=== PATIENT | male | born 1945 | race Caucasian/White ===

== ENCOUNTER 2019-01-18 08:43 | Emergency (ER) | payer MEDICARE ==
--- NOTE | 2019-01-18 09:05 | ED Physician Documentation ---
PD HPI MALE - Stated complaint Stated Complaint: MALE - Chief complaint Chief Complaint: General - History obtained from History obtained from: Patient - History of Present Illness Timing - onset: How many days ago (couple) Timing - duration: Days (couple) Timing - details: Gradual onset, Still present Associated symptoms: Testiclar pain (left sided only, not affected by scrotal support nor position. No flank pain.). No: Dysuria, Urinary frequency, Unable to urinate, Genital sore / lesion, Abdominal pain Similar symptoms before: Has not had sx before Recently seen: Not recently seen Review of Systems Constitutional: denies: Fever, Chills, Myalgias Cardiac: denies: Chest pain / pressure, Palpitations Respiratory: denies: Dyspnea, Cough GI: denies: Abdominal Pain, Nausea, Vomiting, Constipation, Diarrhea : denies: Dysuria, Frequency, Discharge Skin: denies: Rash, Lesions Musculoskeletal: denies: Neck pain, Back pain PD PAST MEDICAL HISTORY - Past Medical History Cardiovascular: None Respiratory: None Neuro: None Endocrine/Autoimmune: None : None - Present Medications Home Medications: Ambulatory Orders Medication Instructions Recorded Confirmed Oxycodone HCl/Acetaminophen 1 - 2 each PO Q6H PRN #25 tablet 01/18/19 [Percocet 5-325 mg Tablet] RX: Naproxen 500 mg PO BID #20 tablet 01/18/19 dexAMETHasone [Decadron] 4 mg PO DAILY #5 tablet 01/18/19 - Allergies Allergies/Adverse Reactions: Allergies Allergy/AdvReac Type Severity Reaction Status Date / Time erythromycin base Allergy Cramps Verified 01/18/19 08:49 PD ED PE NORMAL - Vitals Vital signs reviewed: Yes - General General: Alert and oriented X 3, Well developed/nourished, Other (appears uncomfortable) - Abdomen Abdomen: Soft, Non tender - Male Male : Other (normal genitalia without testicular tenderness nor swelling. No hernia felt. Has sensation on penis, perineum and perirectal. Normal cremaster reflex. ) - Rectal Rectal: Deferred - Back Back: No CVA TTP Results - Vitals Vitals: Vital Signs - 24 hr 01/18/19 01/18/19 01/18/19 08:47 10:48 12:00 Temperature 37.1 C Heart Rate 95 81 82 Respiratory 92 H 16 18 Rate Blood Pressure 179/115 H 182/109 H 165/86 H O2 Saturation 96 98 96 Oxygen O2 Source Room air - Rads (name of study) testicle U/S Radiology: Prelim report reviewed, See rad report (normal) PD MEDICAL DECISION MAKING - ED course Complexity details: considered differential (testicle seems normal but can get U/S to ensure. Otherwise is sounding like nerve irritation, presume then S2 or S3 to go there. He has normal sensation and cremaster and rectal tone, so does not seem caudal or significant nerve compression. No flank pain, so doubt kidney stone or up higher. Is emptying bladder okay. ), d/w patient Departure - Departure Disposition: 01 Home, Self Care Clinical Impression: Pelvic pain, Testicular pain, left Condition: Stable Record reviewed to determine appropriate education?: Yes Instructions: ED Pelvic Pain [facility] Follow-Up: Efren Hurst MD [Primary Care Provider] - Prescriptions: dexAMETHasone [Decadron] 4 mg PO DAILY #5 tablet RX: Naproxen 500 mg PO BID #20 tablet Oxycodone HCl/Acetaminophen [Percocet 5-325 mg Tablet] 1 - 2 each PO Q6H PRN #25 tablet PRN Reason: pain Comments: Your ultrasound appears normal as does the exam of your genitalia. I think your pain is coming from a nerve irritation from the sacrum/pelvis ("pinched nerve"). We will treat this with anti-inflammatories and pain medicine. Heat and gentle range of motion as comfortable. Recheck if not improved over the next several days and return if not adequately relieved or improved with the prescribed medications. Discharge Date/Time: 01/18/19 12:14
[2019-01-18] MEDS ORDERED: CHERRY SYRUP 10 ML UDC PO ONE (09:16)
[2019-01-18] MEDS ORDERED: DEXAMETHASONE 10 MG/ML VIAL PO STA (09:16)
[2019-01-18] MEDS ORDERED: METHOCARBAMOL 500 MG TABLET PO STA (09:16)
[2019-01-18] MEDS ORDERED: KETOROLAC 30 MG/ML VIAL IM STA (09:16)
[2019-01-18 12:14] VITALS: BP 165/86
--- NOTE | 2019-01-18 12:48 | Ultrasound Report ---
Reason: left testicle pain after lifting yesterday Procedure Date: 01/18/2019 Accession Number: [id number] / [id number] Procedure: US - Testicle w/Doppler CPT Code: FULL RESULT: EXAM: SCROTAL ULTRASOUND EXAM DATE: 01/18/2019 10:34 AM. CLINICAL HISTORY: Left testicle pain after lifting yesterday. COMPARISON: 01/18/2019 10:39 AM. 01/18/2019 10:43 AM. TECHNIQUE: Real-time scanning was performed with static images obtained. Color-flow images were utilized. FINDINGS: Right: Testis: 3.7 x 2.3 x 3.3 cm. Normal size and echotexture. No mass, calcification, or abnormal blood flow. Epididymis: 1.2 x 0.6 x 0.7 cm. Normal size and echotexture. No mass or abnormal blood flow. Hydrocele: Small hydrocele. Varicocele: None. Left: Testis: 4.2 x 2.5 x 2.7 cm. Normal size and echotexture. No mass, calcification, or abnormal blood flow. Epididymis: cm. Normal size and echotexture. No mass or abnormal blood flow. Hydrocele: Moderate hydrocele. Varicocele: None. No evidence of inguinal canal hernia detected. IMPRESSION: Bilateral hydroceles. No testicular masses or evidence of torsion identified. [facility]
== END 2019-01-18 12:14 | disposition home or self-care (01) ==
LOC: ED 08:43
DX: N50.812 Left testicular pain (principal); R10.2 Pelvic and perineal pain
CPT/HCPCS: 76870; 93975; 96372; 99283; 99284; A9270

== ENCOUNTER 2020-06-15 08:09 | Outpatient (CLI) | payer MEDICARE ==
[2020-06-15 08:50] LABS: BASOPHILS % (AUTO) 0.4 %; EOSINOPHILS # (AUTO) 0.1 10^3/uL (0.0-0.7); EOSINOPHILS % (AUTO) 1.4 %; HGB - HEMOGLOBIN 14.7 g/dL (14.0-18.0); LYMPHOCYTES # (AUTO) 2.8 10^3/uL (1.5-3.5); LYMPHOCYTES % (AUTO) 35.8 %; MEAN CORPUSCULAR HEMOGLOBIN 32.7 pg (27.0-31.0); MEAN CORPUSCULAR HGB CONC 34.1 g/dL (32.0-36.0); MEAN PLATELET VOLUME 11.2 fL (7.4-11.4); MONOCYTES # (AUTO) 0.5 10^3/uL (0.0-1.0); MONOCYTES % (AUTO) 6.6 %; NEUTROPHILS # (AUTO) 4.3 10^3/uL (1.5-6.6); NEUTROPHILS % (AUTO) 55.2 %; PLT - PLATELET COUNT 163 10^3/uL (130-450); RED BLOOD COUNT 4.49 10^6/uL (4.70-6.10); RED CELL DISTRIBUTION WIDTH 13.3 % (12.0-15.0); WHITE BLOOD COUNT 7.9 x10^3/uL (4.8-10.8)
[2020-06-15 09:00] LABS: ALBUMIN 4.6 g/dL (3.2-5.5); ALBUMIN/GLOBULIN RATIO 1.3 (1.0-2.2); BILIRUBIN,TOTAL 1.3 mg/dL (0.2-1.0); CALCIUM 8.6 mg/dL (8.5-10.3); TOTAL PROTEIN 8.1 g/dL (6.7-8.2)
[2020-06-15 10:11] LABS: THYROID STIMULATING HORMONE 2.81 uIU/mL (0.34-5.60)
[2020-06-15 10:13] LABS: FREE T3 2.88 pg/mL (2.5-3.9)
--- NOTE | 2020-06-15 15:26 | XRAY Report ---
PROCEDURE: Chest 2 View X-Ray INDICATIONS: PND,HYPERTENSION BENIGN ESSENTIAL,LAB DRAW TECHNIQUE: 2 view(s) of the chest. COMPARISON: None. FINDINGS: Surgical changes and devices: None. Lungs and pleura: No pleural effusions or pneumothorax. Lungs are clear. Mediastinum: Mediastinal contours are normal. Heart size is normal. Bones and chest wall: No suspicious bony abnormalities. Soft tissues appear unremarkable. IMPRESSION: No acute pulmonary process. Reviewed by: Vero Rodas MD on 06/15/2020 3:25 PM [facility] Approved by: Vero Rodas MD on 06/15/2020 3:25 PM [facility] Station ID: [id number]
== END 2020-06-15 08:10 | disposition home or self-care (01) ==
LOC: LAB 08:09 → DI 08:10
PROVIDERS: ATTEND Family Medicine
DX: R06.00 Dyspnea, unspecified (principal); I10 Essential (primary) hypertension
CPT/HCPCS: 36415; 80053; 83880; 84443; 84481; 85025

== ENCOUNTER 2020-06-26 11:23 | Outpatient (CLI) | payer MEDICARE ==
[2020-06-26 11:57] LABS: BASOPHILS % (AUTO) 0.2 %; EOSINOPHILS # (AUTO) 0.1 10^3/uL (0.0-0.7); EOSINOPHILS % (AUTO) 1.4 %; HGB - HEMOGLOBIN 14.4 g/dL (14.0-18.0); LYMPHOCYTES # (AUTO) 2.2 10^3/uL (1.5-3.5); LYMPHOCYTES % (AUTO) 32.7 %; MEAN CORPUSCULAR HGB CONC 34.3 g/dL (32.0-36.0); MEAN CORPUSCULAR VOLUME 96.3 fL (80.0-94.0); MEAN PLATELET VOLUME 11.3 fL (7.4-11.4); MONOCYTES # (AUTO) 0.5 10^3/uL (0.0-1.0); MONOCYTES % (AUTO) 7.1 %; NEUTROPHILS # (AUTO) 3.9 10^3/uL (1.5-6.6); NEUTROPHILS % (AUTO) 58.3 %; PLT - PLATELET COUNT 157 10^3/uL (130-450); RED BLOOD COUNT 4.36 10^6/uL (4.70-6.10); RED CELL DISTRIBUTION WIDTH 13.1 % (12.0-15.0); WHITE BLOOD COUNT 6.6 x10^3/uL (4.8-10.8)
[2020-06-26 12:14] LABS: ALBUMIN 4.6 g/dL (3.2-5.5); ALBUMIN/GLOBULIN RATIO 1.4 (1.0-2.2); BILIRUBIN,DIRECT 0.2 mg/dL (0.1-0.5); BILIRUBIN,TOTAL 0.9 mg/dL (0.2-1.0); CALCIUM 9.3 mg/dL (8.5-10.3); CREATININE 1.1 mg/dL (0.6-1.2); POTASSIUM 4.3 mmol/L (3.5-5.0); TOTAL PROTEIN 7.8 g/dL (6.7-8.2)
[2020-06-26 12:40] LABS: THYROID STIMULATING HORMONE 2.68 uIU/mL (0.34-5.60)
[2020-06-26 12:42] LABS: FREE T3 2.95 pg/mL (2.5-3.9)
[2020-06-26 12:43] LABS: FREE T4 (FREE THYROXINE) 0.78 ng/dL (0.58-1.64)
[2020-06-27 12:58] LABS: HEPATITIS B SURFACE ANTIGEN NON-REACTIVE (NON-REACTIVE); HEPATITIS C ANTIBODY NON-REACTIVE (NON-REACTIVE)
== END 2020-06-26 11:24 | disposition home or self-care (01) ==
LOC: LAB 11:23
PROVIDERS: ATTEND Family Medicine
DX: R06.00 Dyspnea, unspecified (principal); I10 Essential (primary) hypertension; R17 Unspecified jaundice; R74.01 Elevation of levels of liver transaminase levels
CPT/HCPCS: 36415; 80053; 82248; 82977; 83880; 84439; 84443; 84481; 85025; 86317; 86704; 86803; 87340

== ENCOUNTER 2021-08-08 07:33 | Outpatient (CLI) | payer MEDICARE ==
[2021-08-08 08:03] LABS: ALBUMIN 4.7 g/dL (3.2-5.5); ALBUMIN/GLOBULIN RATIO 1.4 (1.0-2.2); ALKALINE PHOSPHATASE 107 IU/L (42-121); ALT ALANINE AMINOTRANSFERASE 78 IU/L (10-60); AST ASPARTATE AMINOTRANSFERASE 84 IU/L (10-42); BILIRUBIN,TOTAL 1.1 mg/dL (0.2-1.0); BUN - BLOOD UREA NITROGEN 10 mg/dL (6-20); CALCIUM 8.8 mg/dL (8.5-10.3); CARBON DIOXIDE - CO2 24 mmol/L (21-32); CHLORIDE 99 mmol/L (101-111); CHOL/HDL RATIO 4.6 (<5.0); CHOLESTEROL 237 mg/dL; CREATININE 1.1 mg/dL (0.6-1.2); GFR - MDRD 65 (>89); GLUCOSE 149 mg/dL (70-100); HDL CHOLESTEROL 51 mg/dL; LDL CHOLESTEROL,CALCULATED 124 mg/dL; LDL/HDL RATIO 2.4 (<3.6); POTASSIUM 4.4 mmol/L (3.5-5.0); SODIUM 133 mmol/L (135-145); TRIGLYCERIDES 308 mg/dL; VLDL CHOLESTEROL 62 mg/dL
== END 2021-08-08 07:34 | disposition home or self-care (01) ==
LOC: LAB 07:33
PROVIDERS: ATTEND Urology
DX: I10 Essential (primary) hypertension (principal); Z13.6 Encounter for screening for cardiovascular disorders; R97.20 Elevated prostate specific antigen [PSA]
CPT/HCPCS: 36415; 80053; 80061; G0103; 83721; 84153

== ENCOUNTER 2022-01-14 08:47 | Outpatient (CLI) | payer MEDICARE ==
--- NOTE | 2022-01-14 11:41 | CT Report ---
PROCEDURE: CT sinus without contrast INDICATIONS: CHRONIC PANSINUSITIS TECHNIQUE: Noncontrast 3.0 mm axial images acquired from the frontal sinuses to the mid-sella, with coronal and sagittal reformats. For radiation dose reduction, the following was used: automated exposure control , adjustment of mA and/or kV according to patient size. COMPARISON: None. FINDINGS: Image quality: Excellent. Maxillary Sinuses: Bilateral maxillary sinus retention cysts measure up to 3 cm in the right. Ostiome atal units are clear. Ethmoid Air Cells: Bilateral mucosal thickening involving the anterior and middle air cells. No remod eling. Sphenoid Sinuses: No bony remodeling or destruction. Sinuses are clear. Frontal Sinuses: Bilateral mucosal thickening along the floor of the frontal sinuses results in obstr uction of the bilateral frontal recesses. Ostiomeatal Complexes: Ostiomeatal complexes are patent. No Isadora cells. Miscellaneous: Visualized intra-orbital contents are normal. There is pneumatization of the left mid dle turbinate. Slight bowing of the osseous septum to the right. IMPRESSION: 1. Maxillary, ethmoid and frontal mucosal sinus disease results in obstruction of the frontal egress tracks 2. Incidental left randy bullosa Reviewed by: Kirk Huber MD on 01/14/2022 10:40 AM [facility] Approved by: Kirk Huber MD on 01/14/2022 10:40 AM [facility] Station ID: [id number]
== END 2022-01-14 08:48 | disposition home or self-care (01) ==
LOC: DI 08:47
PROVIDERS: ATTEND Otolaryngology
DX: J32.4 Chronic pansinusitis (principal)

== ENCOUNTER 2022-01-25 10:16 | Emergency (ER) | payer MEDICARE ==
--- OUTSIDE RECORDS SUMMARY | 2022-01-25 10:33 | EXTERNAL MEDICAL SUMMARY RPT | Continuity of Care Document ---
:1945 Author Organization [facility] Address [address] [place] [address] Phone Allergies No information. Encounters No information. Functional Status No information. Immunizations No information. Medications No information. Problems No information. Procedures No information. Results/Labs test date author facility value unit interpret ation Result panel 1 (unknown) (no (unknown) (unknown) (no value) (units (unk nown) date) unknown) (unknown) (no (unknown) (unknown) [place], [place] (units ( unknown) date) [id number] unknown) (unknown) (no (unknown) (unknown) [facility] (units (unkno wn) date) unknown) (unknown) (no (unknown) (unknown) [facility] ([facility] date[facility] unknown) (unknown) (no (unknown) (unknown) Hypertension (units (u nknown) date) unknown) (unknown) (no (unknown) (unknown) Internal (units (unkno wn) date) Medicine Office unknown) Visit (unknown) (no (unknown) (unknown) Vomiting (units (unkno wn) date) unknown) (unknown) (no (unknown) (unknown) (no value) (units (unk nown) date) unknown) (unknown) (no (unknown) (unknown) [id number] (units (unkno wn) date) unknown) (unknown) (no (unknown) (unknown) 12/17/21 (units (unkno wn) date) unknown) (unknown) (no (unknown) (unknown) Age/Sex: 76 / M (units (unknown) date) Date of Service: unknown) (unknown) (no (unknown) (unknown) Allergies (units (unkn own) date) unknown) (unknown) (no (unknown) (unknown) Attending Dr: (units ( unknown) date) Jian Lopez MD unknown) (unknown) (no (unknown) (unknown) : 1945 (units (unknown) date) Acct:[id number] unknown) (unknown) (no (unknown) (unknown) Dept at (units (unkno wn) date) . unknown) (unknown) (no (unknown) (unknown) Documented By: (units (unknown) date) Jian Lopez MD unknown) 12/17/21 1400 (unknown) (no (unknown) (unknown) Elevated PSA (units (u nknown) date) unknown) (unknown) (no (unknown) (unknown) Erectile (units (unkno wn) date) dysfunction unknown) (unknown) (no (unknown) (unknown) Essential (units (unkn own) date) hypertension unknown) (unknown) (no (unknown) (unknown) Family History (units (unknown) date) (Reviewed unknown) 07/17/21 @ 11:09 by Jian Lopez MD) (unknown) (no (unknown) (unknown) Father (units (unknown) date) No problems unknown) noted. (unknown) (no (unknown) (unknown) Gilbert syndrome (units (unknown) date) unknown) (unknown) (no (unknown) (unknown) Hearing loss (units (u nknown) date) unknown) (unknown) (no (unknown) (unknown) Intake (units (unkno wn) date) unknown) (unknown) (no (unknown) (unknown) Intake Note: (units (u nknown) date) unknown) (unknown) (no (unknown) (unknown) Intake performed (units (unknown) date) by: Starla San unknown) D (unknown) (no (unknown) (unknown) Intake- Clincial (units (unknown) date) Staff unknown) (unknown) (no (unknown) (unknown) LS: 07/2021. (units (un known) date) unknown) (unknown) (no (unknown) (unknown) Loc: [facility] (units (unkno wn) date) unknown) (unknown) (no (unknown) (unknown) Medical History (units (unknown) date) (Updated 08/17/21 unknown) @ 11:29 by Jian Lopez MD) (unknown) (no (unknown) (unknown) Medications (units (un known) date) unknown) (unknown) (no (unknown) (unknown) Memory Issues (units ( unknown) date) unknown) (unknown) (no (unknown) (unknown) Mother (units (unknown) date) Diabetes mellitus unknown) (unknown) (no (unknown) (unknown) No pertinent (units (u nknown) date) past surgical unknown) history (unknown) (no (unknown) (unknown) Not feeling (units (un known) date) well. unknown) (unknown) (no (unknown) (unknown) Ongoing for (units (un known) date) unknown) (unknown) (no (unknown) (unknown) PFSH (units (unkno wn) date) unknown) (unknown) (no (unknown) (unknown) Patient: (units (unkno wn) date) Jono Salinas unknown) MR#: [id number] (unknown) (no (unknown) (unknown) Prostate cancer (units (unknown) date) unknown) (unknown) (no (unknown) (unknown) Reason For Visit (units (unknown) date) unknown) (unknown) (no (unknown) (unknown) Review/Discuss. (units (unknown) date) unknown) (unknown) (no (unknown) (unknown) Signed By: (units (unk nown) date) unknown) (unknown) (no (unknown) (unknown) Smoking Status: (units (unknown) date) Former smoker unknown) (Smokes Marijuana daily) (unknown) (no (unknown) (unknown) Surgical History (units (unknown) date) (Reviewed unknown) 07/17/21 @ 11:09 by Jian Lopez MD) (unknown) (no (unknown) (unknown) This note may (units ( unknown) date) have been all or unknown) partially generated using voice recognition (unknown) (no (unknown) (unknown) Tobacco + (units (unkn own) date) Substance Use unknown) (unknown) (no (unknown) (unknown) Tobacco Status (units (unknown) date) unknown) (unknown) (no (unknown) (unknown) Transaminitis (units ( unknown) date) unknown) (unknown) (no (unknown) (unknown) Visit Reasons: (units (unknown) date) Memory issues, unknown) not feeling well (unknown) (no (unknown) (unknown) amlodipine 5 mg (units (unknown) date) tablet 5 mg PO unknown) DAILY 07/17/21 [History Confirmed 12/17/21] (unknown) (no (unknown) (unknown) azithromycin (units (u nknown) date) Adverse Reaction unknown) (Severe, Verified 12/17/21 14:01) (unknown) (no (unknown) (unknown) have occurred. (units (unknown) date) If there are any unknown) questions, please contact the Medical Records (unknown) (no (unknown) (unknown) may occur. (units (unk nown) date) Occasional unknown) wrong-word or 'sound-alike' substitutions may have (unknown) (no (unknown) (unknown) occurred due to (units (unknown) date) the inherent unknown) limitations of voice recognition software. Please (unknown) (no (unknown) (unknown) read the note (units ( unknown) date) carefully and unknown) recognize, using context, where these substitutions (unknown) (no (unknown) (unknown) software. (units (unkn own) date) Although every unknown) effort is made to edit content, service center coordinator errors (unknown) (no (unknown) (unknown) tamsulosin 0.4 (units (unknown) date) mg capsule 0.4 mg unknown) PO DAILY 08/17/21 [History Confirmed 12/17/21] Result panel 2 (unknown) (no (unknown) (unknown) (no value) (units (unk nown) date) unknown) (unknown) (no (unknown) (unknown) (no value) (units (unk nown) date) unknown) (unknown) (no (unknown) (unknown) 12/17/21 (units (unkno wn) date) unknown) (unknown) (no (unknown) (unknown) 14:06 (units (unkno wn) date) unknown) (unknown) (no (unknown) (unknown) [place], [place] (units ( unknown) date) [id number] unknown) (unknown) (no (unknown) (unknown) Draft (units (unkno wn) date) unknown) (unknown) (no (unknown) (unknown) [facility] unknown) (unknown) (no (unknown) (unknown) Hypertension (units (u nknown) date) unknown) (unknown) (no (unknown) (unknown) Internal (units (unkno wn) date) Medicine Office unknown) Visit (unknown) (no (unknown) (unknown) Vomiting (units (unkno wn) date) unknown) (unknown) (no (unknown) (unknown) (no value) (units (unk nown) date) unknown) (unknown) (no (unknown) (unknown) [id number] (units (unkno wn) date) unknown) (unknown) (no (unknown) (unknown) 12/17/21 (units (unkno wn) date) unknown) (unknown) (no (unknown) (unknown) Accompanied by: (units (unknown) date) Spouse unknown) (unknown) (no (unknown) (unknown) Age/Sex: 76 / M (units (unknown) date) Date of Service: unknown) (unknown) (no (unknown) (unknown) Allergies (units (unkn own) date) unknown) (unknown) (no (unknown) (unknown) Attending Dr: (units ( unknown) date) Jian Lopez MD unknown) (unknown) (no (unknown) (unknown) BMI 26.8 (units (unkno wn) date) unknown) (unknown) (no (unknown) (unknown) BP 152/94 H (units (un known) date) unknown) (unknown) (no (unknown) (unknown) Blood Pressure (units (unknown) date) Location Lt unknown) brachial (unknown) (no (unknown) (unknown) : 1945 (units (unknown) date) Acct:[id number] unknown) (unknown) (no (unknown) (unknown) Dept at (units (unkno wn) date) . unknown) (unknown) (no (unknown) (unknown) Dizziness - (units (un known) date) falling. unknown) (unknown) (no (unknown) (unknown) Documented By: (units (unknown) date) Jian Lopez MD unknown) 12/17/21 1400 (unknown) (no (unknown) (unknown) Elevated PSA (units (u nknown) date) unknown) (unknown) (no (unknown) (unknown) Erectile (units (unkno wn) date) dysfunction unknown) (unknown) (no (unknown) (unknown) Essential (units (unkn own) date) hypertension unknown) (unknown) (no (unknown) (unknown) Family History (units (unknown) date) (Reviewed unknown) 07/17/21 @ 11:09 by Jian Lopez MD) (unknown) (no (unknown) (unknown) Father (units (unknown) date) No problems unknown) noted. (unknown) (no (unknown) (unknown) Gilbert syndrome (units (unknown) date) unknown) (unknown) (no (unknown) (unknown) Hearing loss (units (u nknown) date) unknown) (unknown) (no (unknown) (unknown) Height 5 ft 10 (units (unknown) date) in unknown) (unknown) (no (unknown) (unknown) Intake (units (unkno wn) date) unknown) (unknown) (no (unknown) (unknown) Intake Note: (units (u nknown) date) unknown) (unknown) (no (unknown) (unknown) Intake performed (units (unknown) date) by: Starla San unknown) D (unknown) (no (unknown) (unknown) Intake- Clincial (units (unknown) date) Staff unknown) (unknown) (no (unknown) (unknown) LS: 07/2021. (units (un known) date) unknown) (unknown) (no (unknown) (unknown) Loc: [facility] (units (unkno wn) date) unknown) (unknown) (no (unknown) (unknown) Medical History (units (unknown) date) (Updated 08/17/21 unknown) @ 11:29 by Jian Lopez MD) (unknown) (no (unknown) (unknown) Medications (units (un known) date) unknown) (unknown) (no (unknown) (unknown) Memory Issues (units ( unknown) date) unknown) (unknown) (no (unknown) (unknown) Mother (units (unknown) date) Diabetes mellitus unknown) (unknown) (no (unknown) (unknown) No pertinent (units (u nknown) date) past surgical unknown) history (unknown) (no (unknown) (unknown) Not feeling (units (un known) date) well. unknown) (unknown) (no (unknown) (unknown) Ongoing since (units ( unknown) date) this summer. unknown) (unknown) (no (unknown) (unknown) Oxygen Delivery (units (unknown) date) Method room air unknown) (unknown) (no (unknown) (unknown) PFSH (units (unkno wn) date) unknown) (unknown) (no (unknown) (unknown) Patient: (units (unkno wn) date) Jono Salinas unknown) MR#: [id number] (unknown) (no (unknown) (unknown) Position Sitting (units (unknown) date) unknown) (unknown) (no (unknown) (unknown) Prostate cancer (units (unknown) date) unknown) (unknown) (no (unknown) (unknown) Pulse 94 H (units (unk nown) date) unknown) (unknown) (no (unknown) (unknown) Pulse Oximetry (units (unknown) date) (%) 97 unknown) (unknown) (no (unknown) (unknown) Pulse Source (units (u nknown) date) Monitor unknown) (unknown) (no (unknown) (unknown) Reason For Visit (units (unknown) date) unknown) (unknown) (no (unknown) (unknown) Review/Discuss. (units (unknown) date) unknown) (unknown) (no (unknown) (unknown) Signed By: (units (unk nown) date) unknown) (unknown) (no (unknown) (unknown) Sleeping a lot (units (unknown) date) during day, not unknown) sleeping well at night (unknown) (no (unknown) (unknown) Smoking Status: (units (unknown) date) Former smoker unknown) (Smokes Marijuana daily) (unknown) (no (unknown) (unknown) Still complains (units (unknown) date) of the sinus unknown) issues - [facility] did not find anything. (unknown) (no (unknown) (unknown) Surgical History (units (unknown) date) (Reviewed unknown) 07/17/21 @ 11:09 by Jian Lopez MD) (unknown) (no (unknown) (unknown) This note may (units ( unknown) date) have been all or unknown) partially generated using voice recognition (unknown) (no (unknown) (unknown) Tobacco + (units (unkn own) date) Substance Use unknown) (unknown) (no (unknown) (unknown) Tobacco Status (units (unknown) date) unknown) (unknown) (no (unknown) (unknown) Transaminitis (units ( unknown) date) unknown) (unknown) (no (unknown) (unknown) Visit Reasons: (units (unknown) date) Memory issues, unknown) not feeling well (unknown) (no (unknown) (unknown) Vitals (units (unkno wn) date) unknown) (unknown) (no (unknown) (unknown) Wanted to do (units (u nknown) date) some tests and unknown) patient did not want to. (unknown) (no (unknown) (unknown) Weight 187 lb 2 (units (unknown) date) oz unknown) (unknown) (no (unknown) (unknown) amlodipine 5 mg (units (unknown) date) tablet 5 mg PO unknown) DAILY 07/17/21 [History Confirmed 12/17/21] (unknown) (no (unknown) (unknown) azithromycin (units (u nknown) date) Adverse Reaction unknown) (Severe, Verified 12/17/21 14:01) (unknown) (no (unknown) (unknown) have occurred. (units (unknown) date) If there are any unknown) questions, please contact the Medical Records (unknown) (no (unknown) (unknown) may occur. (units (unk nown) date) Occasional unknown) wrong-word or 'sound-alike' substitutions may have (unknown) (no (unknown) (unknown) occurred due to (units (unknown) date) the inherent unknown) limitations of voice recognition software. Please (unknown) (no (unknown) (unknown) read the note (units ( unknown) date) carefully and unknown) recognize, using context, where these substitutions (unknown) (no (unknown) (unknown) software. (units (unkn own) date) Although every unknown) effort is made to edit content, service center coordinator errors (unknown) (no (unknown) (unknown) tamsulosin 0.4 (units (unknown) date) mg capsule 0.4 mg unknown) PO DAILY 08/17/21 [History Confirmed 12/17/21] Result panel 3 (unknown) (no (unknown) (unknown) (no value) (units (unk nown) date) unknown) (unknown) (no (unknown) (unknown) Medications: (units (u nknown) date) unknown) (unknown) (no (unknown) (unknown) Status: Chronic (units (unknown) date) unknown) (unknown) (no (unknown) (unknown) (no value) (units (unk nown) date) unknown) (unknown) (no (unknown) (unknown) 12/17/21 (units (unkno wn) date) unknown) (unknown) (no (unknown) (unknown) 12/17/21 1430 (units ( unknown) date) unknown) (unknown) (no (unknown) (unknown) 14:06 (units (unkno wn) date) unknown) (unknown) (no (unknown) (unknown) [place], [place] (units ( unknown) date) [id number] unknown) (unknown) (no (unknown) (unknown) [facility] ([facility] unknown) (unknown) (no (unknown) (unknown) Hypertension (units (u nknown) date) unknown) (unknown) (no (unknown) (unknown) Internal Medicine (units (unknown) date) Office Visit unknown) (unknown) (no (unknown) (unknown) Signed (units (unkno wn) date) unknown) (unknown) (no (unknown) (unknown) Vomiting (units (unkno wn) date) unknown) (unknown) (no (unknown) (unknown) (no value) (units (unk nown) date) unknown) (unknown) (no (unknown) (unknown) (1) Essential (units ( unknown) date) hypertension: unknown) (unknown) (no (unknown) (unknown) (2) Chronic (units (un known) date) pansinusitis: unknown) (unknown) (no (unknown) (unknown) [id number] (units (unkno wn) date) unknown) (unknown) (no (unknown) (unknown) 12/17/21 (units (unkno wn) date) unknown) (unknown) (no (unknown) (unknown) 12/17/21 [Rx (units (u nknown) date) Confirmed 12/17/21] unknown) (unknown) (no (unknown) (unknown) Accompanied by: (units (unknown) date) Spouse unknown) (unknown) (no (unknown) (unknown) Age/Sex: 76 / M (units (unknown) date) Date of Service: unknown) (unknown) (no (unknown) (unknown) Allergies (units (unkn own) date) unknown) (unknown) (no (unknown) (unknown) Assessment + Plan (units (unknown) date) unknown) (unknown) (no (unknown) (unknown) Attending Dr: Jian (units (unknown) date) Elsa Lopez MD unknown) (unknown) (no (unknown) (unknown) BMI 26.8 (units (unkno wn) date) unknown) (unknown) (no (unknown) (unknown) BP 152/94 H (units (un known) date) unknown) (unknown) (no (unknown) (unknown) Blood Pressure (units (unknown) date) Location Lt unknown) brachial (unknown) (no (unknown) (unknown) CT scan that (units (u nknown) date) things were unknown) improved (unknown) (no (unknown) (unknown) Chief Complaint: (units (unknown) date) Follow-up unknown) (unknown) (no (unknown) (unknown) : 1945 (units (unknown) date) Acct:[id number] unknown) (unknown) (no (unknown) (unknown) Dept at (units (unkno wn) date) . unknown) (unknown) (no (unknown) (unknown) Did see ENT who (units (unknown) date) thought he had more unknown) of a chronic pansinusitis going on was (unknown) (no (unknown) (unknown) Dizziness - (units (un known) date) falling. unknown) (unknown) (no (unknown) (unknown) Documented By: (units (unknown) date) Jian Lopez MD unknown) 12/17/21 1400 (unknown) (no (unknown) (unknown) Elevated PSA (units (u nknown) date) unknown) (unknown) (no (unknown) (unknown) Erectile (units (unkno wn) date) dysfunction unknown) (unknown) (no (unknown) (unknown) Essential (units (unkn own) date) hypertension unknown) (unknown) (no (unknown) (unknown) Family History (units (unknown) date) (Reviewed 07/17/21 unknown) @ 11:09 by Jian Lopez MD) (unknown) (no (unknown) (unknown) Father No (units (unknown) date) problems noted. unknown) (unknown) (no (unknown) (unknown) Feels like his (units (unknown) date) balance is been a unknown) bit here in there. Not a consistent thing but (unknown) (no (unknown) (unknown) Gilbert syndrome (units (unknown) date) unknown) (unknown) (no (unknown) (unknown) He is also (units (unk nown) date) concerned about his unknown) blood pressure being a bit high (unknown) (no (unknown) (unknown) He understands (units (unknown) date) that and so I am unknown) going to put him back on Bactrim since it seem (unknown) (no (unknown) (unknown) Hearing loss (units (u nknown) date) unknown) (unknown) (no (unknown) (unknown) Height 5 ft 10 in (units (unknown) date) unknown) (unknown) (no (unknown) (unknown) I think treating (units (unknown) date) him with least 4 unknown) weeks maybe up to 8 weeks of antibiotic (unknown) (no (unknown) (unknown) I would like him (units (unknown) date) to check his blood unknown) pressure once or twice a week for the next (unknown) (no (unknown) (unknown) Intake (units (unkno wn) date) unknown) (unknown) (no (unknown) (unknown) Intake Note: (units (u nknown) date) unknown) (unknown) (no (unknown) (unknown) Intake performed (units (unknown) date) by: Starla San unknown) (unknown) (no (unknown) (unknown) Intake- Clincial (units (unknown) date) Staff unknown) (unknown) (no (unknown) (unknown) LS: 07/2021. (units (un known) date) unknown) (unknown) (no (unknown) (unknown) Loc: [facility] (units (unkno wn) date) unknown) (unknown) (no (unknown) (unknown) Medical History (units (unknown) date) (Updated 08/17/21 @ unknown) 11:29 by Jian Lopez MD) (unknown) (no (unknown) (unknown) Medications (units (un known) date) unknown) (unknown) (no (unknown) (unknown) Memory Issues (units ( unknown) date) unknown) (unknown) (no (unknown) (unknown) Mother (units (unknown) date) Diabetes mellitus unknown) (unknown) (no (unknown) (unknown) New (units (unkno wn) date) unknown) (unknown) (no (unknown) (unknown) No pertinent past (units (unknown) date) surgical history unknown) (unknown) (no (unknown) (unknown) Not feeling well. (units (unknown) date) unknown) (unknown) (no (unknown) (unknown) Note (units (unkno wn) date) unknown) (unknown) (no (unknown) (unknown) Note: (units (unkno wn) date) unknown) (unknown) (no (unknown) (unknown) Notes (units (unkno wn) date) unknown) (unknown) (no (unknown) (unknown) Ongoing since this (units (unknown) date) summer. unknown) (unknown) (no (unknown) (unknown) Oxygen Delivery (units (unknown) date) Method room air unknown) (unknown) (no (unknown) (unknown) PFSH (units (unkno wn) date) unknown) (unknown) (no (unknown) (unknown) Patient feels like (units (unknown) date) the Bactrim that I unknown) put him on before back in June did make a (unknown) (no (unknown) (unknown) Patient is here in (units (unknown) date) follow-up. unknown) (unknown) (no (unknown) (unknown) Patient: (units (unkno wn) date) MarielaJono Herrera unknown) MR#: [id number] (unknown) (no (unknown) (unknown) Plan (units (unkno wn) date) unknown) (unknown) (no (unknown) (unknown) Position Sitting (units (unknown) date) unknown) (unknown) (no (unknown) (unknown) Prostate cancer (units (unknown) date) unknown) (unknown) (no (unknown) (unknown) Pulse 94 H (units (unk nown) date) unknown) (unknown) (no (unknown) (unknown) Pulse Oximetry (%) (units (unknown) date) 97 unknown) (unknown) (no (unknown) (unknown) Pulse Source (units (u nknown) date) Monitor unknown) (unknown) (no (unknown) (unknown) Reason For Visit (units (unknown) date) unknown) (unknown) (no (unknown) (unknown) Review/Discuss. (units (unknown) date) unknown) (unknown) (no (unknown) (unknown) Signed By: (units (unk nown) date) <Electronically unknown) signed by Jian Lopez MD> (unknown) (no (unknown) (unknown) Sleeping a lot (units (unknown) date) during day, not unknown) sleeping well at night (unknown) (no (unknown) (unknown) Smoking Status: (units (unknown) date) Former smoker unknown) (Smokes Marijuana daily) (unknown) (no (unknown) (unknown) Still complains of (units (unknown) date) the sinus issues - unknown) states [facility] did not find anything. (unknown) (no (unknown) (unknown) Surgical History (units (unknown) date) (Reviewed 07/17/21 unknown) @ 11:09 by Jian Lopez MD) (unknown) (no (unknown) (unknown) This note may have (units (unknown) date) been all or unknown) partially generated using voice recognition (unknown) (no (unknown) (unknown) Tobacco + (units (unkn own) date) Substance Use unknown) (unknown) (no (unknown) (unknown) Tobacco Status (units (unknown) date) unknown) (unknown) (no (unknown) (unknown) Transaminitis (units ( unknown) date) unknown) (unknown) (no (unknown) (unknown) Visit Reasons: (units (unknown) date) Memory issues, not unknown) feeling well (unknown) (no (unknown) (unknown) Vitals (units (unkno wn) date) unknown) (unknown) (no (unknown) (unknown) Wanted to do some (units (unknown) date) tests and patient unknown) did not want to. (unknown) (no (unknown) (unknown) Weight 84.878 kg (units (unknown) date) unknown) (unknown) (no (unknown) (unknown) amlodipine 5 mg (units (unknown) date) tablet 5 mg PO unknown) DAILY 07/17/21 [History Confirmed 12/17/21] (unknown) (no (unknown) (unknown) azithromycin (units (u nknown) date) Adverse Reaction unknown) (Severe, Verified 12/17/21 14:01) (unknown) (no (unknown) (unknown) difference but he (units (unknown) date) got right back to unknown) where he was when he stop taking it. (unknown) (no (unknown) (unknown) doing what he is (units (unknown) date) completed that unknown) first course of antibiotics as well as check in (unknown) (no (unknown) (unknown) have occurred. If (units (unknown) date) there are any unknown) questions, please contact the Medical Records (unknown) (no (unknown) (unknown) is happen. He (units ( unknown) date) actually almost unknown) fell on 1 occasion (unknown) (no (unknown) (unknown) may occur. (units (unk nown) date) Occasional unknown) wrong-word or 'sound-alike' substitutions may have (unknown) (no (unknown) (unknown) occurred due to (units (unknown) date) the inherent unknown) limitations of voice recognition software. Please (unknown) (no (unknown) (unknown) on the blood (units (u nknown) date) pressure unknown) (unknown) (no (unknown) (unknown) read the note (units ( unknown) date) carefully and unknown) recognize, using context, where these substitutions (unknown) (no (unknown) (unknown) several weeks then (units (unknown) date) come back and see unknown) me in about 6 weeks so I can see how he is (unknown) (no (unknown) (unknown) software. Although (units (unknown) date) every effort is unknown) made to edit content, service center coordinator errors (unknown) (no (unknown) (unknown) sulfamethoxazole (units (unknown) date) 800 mg-trimethoprim unknown) 160 mg tablet 1 tab PO BID #56 tabs (unknown) (no (unknown) (unknown) sulfamethoxazole-t (units (unknown) date) rimethoprim 800-160 unknown) mg 1 tab PO BID 56 tabs 1RF (unknown) (no (unknown) (unknown) talking about (units ( unknown) date) treating him with unknown) antibiotics etcetera but patient never followed (unknown) (no (unknown) (unknown) tamsulosin 0.4 mg (units (unknown) date) capsule 0.4 mg PO unknown) DAILY 08/17/21 [History Confirmed 12/17/21] (unknown) (no (unknown) (unknown) therapy is going (units (unknown) date) to be the next step unknown) in getting him over this. (unknown) (no (unknown) (unknown) through it appears. (units (unknown) date) Want to make sure unknown) after his symptoms improved with a repeat (unknown) (no (unknown) (unknown) to help do it for (units (unknown) date) 4 weeks with a unknown) refill if necessary Social History No information. Vital Signs No information.
[2022-01-25 11:21] LABS: BASOPHILS % (AUTO) 0.4 %; EOSINOPHILS # (AUTO) 0.2 10^3/uL (0.0-0.7); EOSINOPHILS % (AUTO) 2.5 %; HCT - HEMATOCRIT 42.6 % (42.0-52.0); HGB - HEMOGLOBIN 14.7 g/dL (14.0-18.0); LYMPHOCYTES # (AUTO) 1.5 10^3/uL (1.5-3.5); LYMPHOCYTES % (AUTO) 21.9 %; MEAN CORPUSCULAR HEMOGLOBIN 33.6 pg (27.0-31.0); MEAN CORPUSCULAR HGB CONC 34.5 g/dL (32.0-36.0); MEAN CORPUSCULAR VOLUME 97.5 fL (80.0-94.0); MEAN PLATELET VOLUME 10.9 fL (7.4-11.4); MONOCYTES # (AUTO) 0.6 10^3/uL (0.0-1.0); NEUTROPHILS # (AUTO) 4.6 10^3/uL (1.5-6.6); NEUTROPHILS % (AUTO) 66.5 %; PLT - PLATELET COUNT 171 10^3/uL (130-450); RED BLOOD COUNT 4.37 10^6/uL (4.70-6.10); RED CELL DISTRIBUTION WIDTH 13.1 % (12.0-15.0); WHITE BLOOD COUNT 6.9 x10^3/uL (4.8-10.8)
--- NOTE | 2022-01-25 11:23 | XRAY Report ---
PROCEDURE: Chest 1 View X-Ray INDICATIONS: L sided CP TECHNIQUE: One view of the chest was acquired. COMPARISON: 06/15/2020 FINDINGS: Surgical changes and devices: None. Lungs and pleura: No pleural effusions or pneumothorax. Lungs are clear. Mediastinum: Mediastinal contours appear normal. Heart size is normal. Bones and chest wall: No suspicious bony lesions. Overlying soft tissues appear unremarkable. IMPRESSION: No acute cardiopulmonary process demonstrated radiographically. Reviewed by: Yaya Hanson MD on 01/25/2022 11:22 AM PDT Approved by: Yaya Hanson MD on 01/25/2022 11:22 AM PDT Station ID: [id number]
[2022-01-25 11:37] LABS: ALBUMIN 4.6 g/dL (3.2-5.5); ALBUMIN/GLOBULIN RATIO 1.3 (1.0-2.2); BILIRUBIN,TOTAL 0.8 mg/dL (0.2-1.0); CALCIUM 9.1 mg/dL (8.5-10.3); POTASSIUM 4.5 mmol/L (3.5-5.0); TOTAL PROTEIN 8.1 g/dL (6.7-8.2)
--- NOTE | 2022-01-25 11:57 | ED Physician Documentation ---
PD HPI CHEST PAIN - Stated complaint Stated Complaint: L SIDE PX - Chief complaint Chief Complaint: Resp - History obtained from History obtained from: Patient - Additional information Additional information: Patient is a 76-year-old male presenting for evaluation of left-sided chest pain that has been present since Friday. He has been working outside but denies any known trauma or injury. Pain is sharp and worse with movements and taking a deep breath. The pain does not radiate. He has not taken anything for the pain.He denies history of similar episodes of pain.He denies history of known co ronary artery disease, PE or DVT. Review of Systems Constitutional: denies: Fever Nose: denies: Congestion Cardiac: reports: Chest pain / pressure Respiratory: denies: Dyspnea, Cough GI: denies: Abdominal Pain, Vomiting Musculoskeletal: denies: Back pain Neurologic: denies: Headache PD PAST MEDICAL HISTORY - Past Medical History Cardiovascular: None Respiratory: None Neuro: None Endocrine/Autoimmune: None : None - Past Surgical History HEENT: Tonsil/Adenoidectomy - Present Medications Home Medications: Ambulatory Orders Medication Instructions Recorded Confirmed Naproxen 500 mg PO BID #20 tablet 01/18/19 Oxycodone HCl/Acetaminophen 1 - 2 each PO Q6H PRN #25 tablet 01/18/19 [Percocet 5-325 mg Tablet] dexAMETHasone [Decadron] 4 mg PO DAILY #5 tablet 01/18/19 Lidocaine Patch 5% [Lidoderm Patch] 1 patch TOP DAILY PRN #10 patch 01/25/22 Oxycodone HCl/Acetaminophen 1 each PO Q6H PRN #14 tablet 01/25/22 [Percocet 5-325 mg Tablet] - Allergies Allergies/Adverse Reactions: Allergies Allergy/AdvReac Type Severity Reaction Status Date / Time erythromycin base Allergy Cramps Verified 01/25/22 10:23 - Social History Does the pt smoke?: No Smoking Status: Never smoker Does the pt drink ETOH?: Yes - Immunizations Immunizations are current?: Yes PD ED PE NORMAL - General General: Alert and oriented X 3, No acute distress, Well developed/nourished - HEENT HEENT: Atraumatic, Moist mucous membranes - Neck Neck: Supple, no meningeal sign - Cardiac Cardiac: RRR, No murmur, Strong equal pulses, Other (Point tenderness to left lower rib; ) - Respiratory Respiratory: No respiratory distress, Clear bilaterally - Abdomen Abdomen: Non tender, Non distended - Derm Derm: Warm and dry - Extremities Extremities: No edema - Neuro Neuro: Normal speech Results - Vitals Vitals: Vital Signs - 24 hr 01/25/22 01/25/22 10:20 12:11 Temperature 36.3 C L Heart Rate 70 79 Respiratory 17 20 Rate Blood Pressure 155/93 H 144/92 H O2 Saturation 100 98 Oxygen O2 Source Room air - EKG (time done) 1114 Rate: Rate (enter#) (67) Rhythm: NSR Intervals: RBBB Ischemia: No: ST elevation c/w ischemia - Labs Labs: Laboratory Tests 01/25/22 01/25/22 01/25/22 11:16 11:16 11:16 WBC 6.9 RBC 4.37 L Hgb 14.7 Hct 42.6 MCV 97.5 H MCH 33.6 H MCHC 34.5 RDW 13.1 Plt Count 171 MPV 10.9 Neut # (Auto) 4.6 Lymph # (Auto) 1.5 [place]ata[place]oula # (Auto) 0.6 Eos # (Auto) 0.2 Baso # (Auto) 0.0 Absolute Nucleated RBC 0.00 Nucleated RBC % 0.0 D-Dimer 253.8 Sodium 136 Potassium 4.5 Chloride 100 L Carbon Dioxide 26 Anion Gap 10.0 BUN 11 Creatinine 1.0 Estimated GFR (MDRD) 73 L Glucose 107 H Calcium 9.1 Total Bilirubin 0.8 AST 62 H ALT 58 Alkaline Phosphatase 101 Troponin I High Sens Total Protein 8.1 Albumin 4.6 Globulin 3.5 Albumin/Globulin Ratio 1.3 01/25/22 11:16 WBC RBC Hgb Hct MCV MCH MCHC RDW Plt Count MPV Neut # (Auto) Lymph # (Auto) [place]oula # (Auto) Eos # (Auto) Baso # (Auto) Absolute Nucleated RBC Nucleated RBC % D-Dimer Sodium Potassium Chloride Carbon Dioxide Anion Gap BUN Creatinine Estimated GFR (MDRD) Glucose Calcium Total Bilirubin AST ALT Alkaline Phosphatase Troponin I High Sens 4.6 Total Protein Albumin Globulin Albumin/Globulin Ratio PD MEDICAL DECISION MAKING - ED course Complexity details: reviewed results, re-evaluated patient ED course: Patient presenting for evaluation of left-sided chest pain that has been present all week and worse with taking a deep breath. Has reproducible tenderness on exam. EKG and labs reviewed. Doubt ACS or PE based on labs and exam findings. Chest x-ray demonstrates a rib fracture at the site of his pain. Discussed treatment plan with pain medication and incentive spirometer. Patient is comfortable with plan for discharge. Vital signs appear stable. Departure - Departure Disposition: 01 Home, Self Care Clinical Impression: Left rib fracture Qualifiers: Encounter type: initial encounter Rib fracture type: single rib Fracture type: closed Qualified Code(s): S22.32XA - Fracture of one rib, left side, initial encounter for closed fracture Condition: Stable Instructions: ED Fx Rib Prescriptions: Lidocaine Patch 5% [Lidoderm Patch] 1 patch TOP DAILY PRN #10 patch PRN Reason: pain Oxycodone HCl/Acetaminophen [Percocet 5-325 mg Tablet] 1 each PO Q6H PRN #14 tablet PRN Reason: pain Comments: You were evaluated for left-sided chest pain and found to have a single rib fracture. This is treated with pain medication and I have sent a prescription for narcotic pain medications to the [facility].We have also given you an incentive spirometer Which you should try to utilize several times a day to make sure you are inhaling fully. Rib fractures can be very painful and take several weeks to heal. Please contact your primary care doctor for close follow-up. If you have any worsening symptoms such as trouble breathing please return to the emergency department. I am prescribing a short course of narcotic pain medication for you. These are potentially dangerous and addictive medications that should be used carefully. These medications may constipate you. Take an [id number] stool softener (docusate) twice daily with plenty of water while taking these medications. If you go 24 hours without a bowel movement, take tykr-[id number]-[id number] miralax, per package instructions. Do not drink or drive while taking these medications. If you received narcotic or sedating medications while in the emergency department, do not drive for 24 hours. Store this medication in a safe, secure place and out of reach of children. It is a violation of federal law to give or sell this medication to another person or to use in a manner other than prescribed. The ED will not refill narcotic prescriptions, including prescriptions lost or stolen. To dispose of unwanted medications: 1. [facility] [address] in [place] has a medication drop box. They accept prescription medications (in pill form) Friday through Friday 9:00 a.m. to 5:00 p.m. 2. The [facility] [employer] accepts prescription medications (in pill form only) for disposal year round. Call for more information. 3. Contact the [facility] for the next [facility] sponsored prescription drug collection event. , [phone], or [phone]; Note that many narcotic pain relievers also contain Tylenol/acetaminophen. Please ensure that your total dose of acetaminophen from all sources does not exceed 3 g (3000 mg) per day. Discharge Date/Time: 01/25/22 12:24
[2022-01-25] MEDS: LIDOCAINE PATCH 5% TOP STA (12:08)
[2022-01-25 12:11] VITALS: BP 144/92
== END 2022-01-25 12:24 | disposition home or self-care (01) ==
LOC: ED 10:16
DX: S22.32XA Fracture of one rib, left side, initial encounter for closed fracture (principal); X58.XXXA Exposure to other specified factors, initial encounter
CPT/HCPCS: 36415; 71045; 80053; 84484; 85025; 85379; 93005; 99284; A9270

== ENCOUNTER 2022-10-03 07:42 | Outpatient (CLI) | payer MEDICARE ==
[2022-10-03 08:02] LABS: BASOPHILS % (AUTO) 0.5 %; EOSINOPHILS # (AUTO) 0.1 10^3/uL (0.0-0.7); EOSINOPHILS % (AUTO) 1.1 %; HCT - HEMATOCRIT 41.8 % (42.0-52.0); HGB - HEMOGLOBIN 14.7 g/dL (14.0-18.0); LYMPHOCYTES # (AUTO) 2.1 10^3/uL (1.5-3.5); LYMPHOCYTES % (AUTO) 32.4 %; MEAN CORPUSCULAR HEMOGLOBIN 34.3 pg (27.0-31.0); MEAN CORPUSCULAR HGB CONC 35.2 g/dL (32.0-36.0); MEAN CORPUSCULAR VOLUME 97.4 fL (80.0-94.0); MEAN PLATELET VOLUME 11.8 fL (7.4-11.4); MONOCYTES # (AUTO) 0.4 10^3/uL (0.0-1.0); MONOCYTES % (AUTO) 5.6 %; NEUTROPHILS % (AUTO) 59.9 %; PLT - PLATELET COUNT 160 10^3/uL (130-450); RED BLOOD COUNT 4.29 10^6/uL (4.70-6.10); RED CELL DISTRIBUTION WIDTH 13.3 % (12.0-15.0); WHITE BLOOD COUNT 6.6 x10^3/uL (4.8-10.8)
[2022-10-03 08:18] LABS: ALBUMIN 4.6 g/dL (3.2-5.5); ALBUMIN/GLOBULIN RATIO 1.3 (1.0-2.2); ALKALINE PHOSPHATASE 141 IU/L (42-121); ALT ALANINE AMINOTRANSFERASE 59 IU/L (10-60); AST ASPARTATE AMINOTRANSFERASE 87 IU/L (10-42); BILIRUBIN,TOTAL 0.9 mg/dL (0.2-1.0); BUN - BLOOD UREA NITROGEN 11 mg/dL (6-20); CALCIUM 8.8 mg/dL (8.5-10.3); CARBON DIOXIDE - CO2 27 mmol/L (21-32); CHLORIDE 103 mmol/L (101-111); CHOL/HDL RATIO 3.9 (<5.0); CHOLESTEROL 227 mg/dL; GFR - MDRD 73 (>89); GLUCOSE 163 mg/dL (70-100); HDL CHOLESTEROL 58 mg/dL; LDL CHOLESTEROL,CALCULATED 106 mg/dL; LDL/HDL RATIO 1.8 (<3.6); POTASSIUM 3.9 mmol/L (3.5-5.0); SODIUM 139 mmol/L (135-145); TOTAL PROTEIN 8.2 g/dL (6.7-8.2); TRIGLYCERIDES 314 mg/dL; VLDL CHOLESTEROL 63 mg/dL
[2022-10-03 08:31] LABS: THYROID STIMULATING HORMONE 2.64 uIU/mL (0.34-5.60)
--- NOTE | 2022-10-03 11:18 | XRAY Report ---
PROCEDURE: Chest 2 View X-Ray INDICATIONS: COUCH CHRONIC TECHNIQUE: 2 views of the chest were acquired. COMPARISON: None. FINDINGS: Surgical changes and devices: None. Lungs and pleura: No pleural effusions or pneumothorax. Lungs are clear. Mediastinum: Mediastinal contours appear normal. Heart size is normal. Bones and chest wall: No suspicious bony lesions. Overlying soft tissues appear unremarkable. IMPRESSION: No acute cardiopulmonary process. Reviewed by: José Miguel Cary on 10/03/2022 11:16 AM PDT Approved by: José Miguel Cary on 10/03/2022 11:16 AM PDT Station ID: [id number]
== END 2022-10-03 07:43 | disposition home or self-care (01) ==
LOC: DI 07:42
PROVIDERS: ATTEND Family Medicine
DX: R05.3 Chronic cough (principal); C61 Malignant neoplasm of prostate; I10 Essential (primary) hypertension
CPT/HCPCS: 36415; 80053; 80061; 83721; 84153; 84443; 85025

== ENCOUNTER 2023-05-22 10:25 | Outpatient (CLI) | payer MEDICARE | END 2023-05-22 10:26 | disposition home or self-care (01) | LOC: LAB 10:25 | PROVIDERS: ATTEND Urology | DX: R97.20 Elevated prostate specific antigen [PSA] (principal) | CPT/HCPCS: 36415; 84153 ==

== ENCOUNTER 2023-06-06 06:06 | Outpatient (CLI) | payer MEDICARE ==
[2023-06-06] MEDS ORDERED: GADOTERATE MEGLUMINE 10 MMOL/20 ML VIAL ONE (07:06)
[2023-06-06] MEDS: GADOTERATE MEGLUMINE 10 MMOL/20 ML VIAL IVP ONE (08:05)
--- NOTE | 2023-06-06 11:46 | MRI Report ---
PROCEDURE: Pelvis W/WO INDICATIONS: ELEVATED PROSTATE specific antigen CONTRAST: CLARISCAN 16.4 ML TECHNIQUE: Coronal ultra fast SE, axial T1 FSE with fat saturation, 3-plane nonbreath-hold T2 FSE. After the ad ministration of contrast, dynamic axial, delayed axial and coronal ultra fast GE or 2-D spoiled GE wi th fat saturation through the pelvis. Optional diffusion weighted imaging and ADC may be performed. COMPARISON: None. FINDINGS: Image quality: Diffusion weighted and dynamic contrast enhanced images are diagnostic. Prostate: Gland size is 4.3 x 3.9 x 4.5 cm; ellipsoid gland volume is 39 mL. Prostate lesions: Lesion 1: Location: Left, apex, medial to lateral peripheral zone. This is best seen on axial series 5, image 18 and sagittal series 7, image 17. Size: 2.7 x 1.5 cm. T2W signal: Circumscribed, homogenous moderate hypointense focus (PI-RADS 4 or 5). DWI signal: Markedly hyperintense signal (PI-RADS 4-5). ADC signal: Markedly hypointense signal (PI-RADS 4-5). Enhancement: Yes Extracapsular extension: Suspected, with bulging of the capsule and mass effect along the anterior re ctal wall (series 5, image 18). No neurovascular involvement. No seminal vesicle involvement. PI-RADS score: 5 There is symmetric T2 hypointense signal within the central zone, without restricted diffusion but wi th enhancement (series 5, image 12), nonspecific. Genitourinary system: Trabeculated bladder wall. Bowel and peritoneum: No pathologic free pelvic fluid. Inferior colon and small bowel loops are nor mal in caliber. Colonic diverticulosis without evidence of diverticulitis. Nodes and vessels: 7 mm short axis left external iliac chain node (series 5, image 7). Soft tissues: No inguinal hernias. Bones: Bone marrow demonstrates normal overall signal. No suspicious bony lesions. IMPRESSION: BI-RADS 5 lesion at the base of the peripheral zone on the left. Features suspicious for extraprosta tic extension. Enlarged left external iliac chain node, suspicious for sneha disease. Reviewed by: José Miguel Cary MD on 06/06/2023 11:45 AM PST Approved by: José Miguel Cary MD on 06/06/2023 11:45 AM PST Station ID: [id number]
== END 2023-06-06 06:07 | disposition home or self-care (01) ==
LOC: LAB 06:06
PROVIDERS: ATTEND Urology
DX: R97.20 Elevated prostate specific antigen [PSA] (principal); N42.89 Other specified disorders of prostate; R59.0 Localized enlarged lymph nodes
CPT/HCPCS: 36415; 72197; 82565; A9575

== ENCOUNTER 2023-07-14 10:23 | Day surgery (SDC) | payer MEDICARE ==
[2023-07-14] MEDS ORDERED: MIDAZOLAM 2 MG/2 ML VIAL ONE (10:57)
[2023-07-14] MEDS ORDERED: PROPOFOL 200 MG/20 ML VIAL IVP ONE (10:57)
[2023-07-14] MEDS: LACTATED RINGERS 1,000 ML IV ONE ×2 (10:57→12:03)
[2023-07-14] MEDS ORDERED: fentaNYL 100 MCG/2 ML VIAL ONE (10:57)
[2023-07-14] MEDS ORDERED: KETOROLAC 30 MG/ML VIAL ONE (11:15)
--- NOTE | 2023-07-14 11:30 | ANESTHESIA ---
Pre-Anesthesia VS, & Labs - Diagnosis elevated prostate - Procedure TRUS Vital Signs: Temp Pulse Resp BP Pulse Ox O2 Flow Rate 36.4 C L 67 16 160/77 H 96 07/14/23 10:58 07/14/23 10:58 07/14/23 10:58 07/14/23 10:58 07/14/23 10:58 Height: 5 ft 9 in Weight (kg): 84.5 kg Body Mass Index: 27.5 BMI Classification: Overweight - NPO >8 hours Home Medications and Allergies Home Medications: Ambulatory Orders Albuterol Sulf [Ventolin Hfa Inhaler] 1 - 2 puffs INH Q4HR PRN 07/07/23 Ciprofloxacin HCl [Cipro] 500 mg PO ONCE 07/07/23 Sertraline [Zoloft] 50 mg PO DAILY 07/07/23 Tamsulosin [Flomax] 0.4 mg PO DAILY 07/07/23 amLODIPine [Norvasc] 5 mg PO DAILY 07/07/23 traZODone [Desyrel] 50 mg PO HS 07/07/23 Albuterol Sulf [Ventolin Hfa Inhaler] 1 - 2 puffs INH Q4HR PRN 07/07/23 Ciprofloxacin HCl [Cipro] 500 mg PO ONCE 07/07/23 Sertraline [Zoloft] 50 mg PO DAILY 07/07/23 Tamsulosin [Flomax] 0.4 mg PO DAILY 07/07/23 amLODIPine [Norvasc] 5 mg PO DAILY 07/07/23 traZODone [Desyrel] 50 mg PO HS 07/07/23 Allergies/Adverse Reactions: Allergies Allergy/AdvReac Type Severity Reaction Status Date / Time erythromycin base Allergy Cramps Verified 07/14/23 11:05 Anes History & Medical History - Anesthetic History Anesthesia Complications: reports: No previous complications - Medical History Cardiovascular: reports: Hypertension Pulmonary: reports: None Gastrointestinal: reports: None Urinary: reports: Kidney stones Neuro: reports: None Musculoskeletal: reports: None Endocrine/Autoimmune: reports: None Skin: reports: None Smoking Status: Never smoker - Surgical History Eyes Ears Nose Throat (EENT): reports: Tonsil/Adenoidectomy Exam General: Alert, Oriented x3 Dental: WNL Mouth Opening: Greater than 4 Fingerbreadths Neck Mobility: Normal Mallampati classification: II Thyromental Distance: greater than 6 cm Respiratory: Lungs clear Cardiovascular: Regular rate Plan Anesthesia Type: Total IV Consent for Procedure(s) Verified and Reviewed: Yes Code Status: Attempt Resuscitation ASA classification: 2-Mild systemic disease Is this case an emergency?: No
[2023-07-14] MEDS ORDERED: LIDOCAINE-MPF 1% 30 ML VIAL ONE (11:34)
[2023-07-14] MEDS: LIDOCAINE 1% 50 ML MDV SUBQ ONE (11:47)
[2023-07-14] MEDS: LIDOCAINE JELLY 2% 6 ML JEL.PF.APP UR ONE (11:47)
--- NOTE | 2023-07-14 12:04 | Discharge Plan ---
Discharge Plan Problem Reviewed?: Yes Disposition: Home, Self Care Condition: Good Activity Restrictions: No Restrictions Shower Restrictions: No Driving Restrictions: No Instruction Topics: Biopsy Ultrasound Transrectal Additional Instructions or Follow Up instructions: You have a follow-up with Dr. Calvillo on July 15 at 10 AM. Please arrive 10 minutes early No Smoking: If you smoke, Please STOP! Call for help. Follow-up with: Efren Hurst MD [Primary Care Provider] - Keron Calvillo MD [Provider Admit Priv/Credential] -
--- NOTE | 2023-07-14 12:08 | OPERATIVE REPORT ---
Operative Report - General Procedure Date: 07/14/23 Planned Procedure: MRI cognitive fusion transrectal ultrasound-guided prostate biopsy Pre-Op Diagnosis: Elevated PSA Procedure Performed: MRI cognitive fusion transrectal ultrasound-guided prostate biopsy Post Op Diagnosis: Elevated PSA - Procedure Note Primary Surgeon: Rajinder Anesthesia Provider: AMADOR Islas Anesthesia Technique: MAC Pathology: Routine prostate biopsy specimens. 1 extra core taken from left mid Estimated Blood Loss (mL): 1 Findings: 48 cc prostate Hypoechoic area at left mid prostate correlated with MRI scan PI-RADS 5 lesion Complications: none - Other Other Information/Narrative: After informed sent was obtained the patient was brought to the OR and laid in the supine position. The patient was then anesthetized per anesthesia protocols. He was placed in left lateral decubitus position with left side down. A timeout was performed confirming the patient and procedure. A transrectal ultrasound was placed per rectum and the prostate was visualized. 5 cc of lidocaine was placed on the lateral aspects of the prostate bilaterally. The prostate was measured at 48 cc. Using cognitive fusion we could see that there was an area in the left mid gland that was hypoechoic corresponding to the PI-RADS 5 lesion seen on MRI. Using an 18-gauge needle we took core biopsies from the right and left side of the prostate, the apex, mid, base and the medial and lateral aspects. An extra core biopsy was taken from the left mid which correlated with this PI-RADS 5 lesion. The ultrasound probe was removed and no significant bleeding was seen. This concluded the procedure the patient tolerated the procedure well. He will follow-up in 1 week's time for pathology discussion. All counts were correct.
--- NOTE | 2023-07-14 12:12 | ANESTHESIA POST OP EVALUATION ---
Anesthesia Post Eval - Post Anesthesia Eval Vitals: Last Vital Signs Temp 36.4 C L 07/14/23 10:58 Pulse 67 07/14/23 10:58 Resp 16 07/14/23 10:58 BP 160/77 H 07/14/23 10:58 Pulse Ox 96 07/14/23 10:58 O2 Flow Rate CV Function Including HR & BP: Stable Pain Control: Satisfactory Nausea & Vomiting: Negative Mental Status: Baseline Respiratory Status: Airway Patent Hydration Status: Satisfactory Anesthesia Complications: None
[2023-07-14 12:44] VITALS: BP 139/80; O2SAT 95
== END 2023-07-14 10:24 | disposition home or self-care (01) ==
LOC: SDS 10:23
PROVIDERS: ATTEND Urology
PROC: 0VB03ZX Excision of Prostate, Percutaneous Approach, Diagnostic (ICD-10-PCS; principal; 2023-07-14 12:00)
DX: C61 Malignant neoplasm of prostate (principal)
CPT/HCPCS: 55700; J7120

== ENCOUNTER 2024-01-09 11:23 | Outpatient (CLI) | payer MEDICARE | END 2024-01-09 23:59 | disposition left against medical advice (07) | LOC: EMS 11:23 | DX: S01.81XA Laceration without foreign body of other part of head, initial encounter (principal); W19.XXXA Unspecified fall, initial encounter; Y93.89 Activity, other specified; Y92.512 Supermarket, store or market as the place of occurrence of the external cause ==

== ENCOUNTER 2024-01-09 12:02 | Emergency (ER) | payer MEDICARE ==
[2024-01-09 13:00] LABS: BASOPHILS % (AUTO) 0.3 %; EOSINOPHILS # (AUTO) 0.1 10^3/uL (0.0-0.7); EOSINOPHILS % (AUTO) 0.8 %; HCT - HEMATOCRIT 38.8 % (42.0-52.0); HGB - HEMOGLOBIN 13.1 g/dL (14.0-18.0); LYMPHOCYTES # (AUTO) 1.2 10^3/uL (1.5-3.5); LYMPHOCYTES % (AUTO) 17.9 %; MEAN CORPUSCULAR HEMOGLOBIN 32.3 pg (27.0-31.0); MEAN CORPUSCULAR HGB CONC 33.8 g/dL (32.0-36.0); MEAN CORPUSCULAR VOLUME 95.6 fL (80.0-94.0); MONOCYTES # (AUTO) 0.3 10^3/uL (0.0-1.0); MONOCYTES % (AUTO) 4.8 %; NEUTROPHILS % (AUTO) 75.6 %; PLT - PLATELET COUNT 153 10^3/uL (130-450); RED BLOOD COUNT 4.06 10^6/uL (4.70-6.10); WHITE BLOOD COUNT 6.7 x10^3/uL (4.8-10.8)
[2024-01-09 13:18] LABS: ALBUMIN 4.6 g/dL (3.2-5.5); ALBUMIN/GLOBULIN RATIO 1.8 (1.0-2.2); BILIRUBIN,TOTAL 0.9 mg/dL (0.2-1.0); CALCIUM 9.2 mg/dL (8.5-10.3); CREATININE 0.8 mg/dL (0.6-1.3); POTASSIUM 3.8 mmol/L (3.5-4.5); TOTAL PROTEIN 7.1 g/dL (6.4-8.9)
--- NOTE | 2024-01-09 13:20 | ED Physician Documentation ---
History of Present Illness - Stated complaint Stated Complaint: LOC W/ HEAD INJURY - Chief complaint Chief Complaint: Trauma Hd/Nk - Additonal information Additional information: Patient is a 78-year-old male presenting to the emergency department with fall at grocery store. Patient is recently going under radiation treatment for prostate cancer. He drives up to [place] every day for the next month to receive radiation treatment and then drives back down. Today he stopped at the grocery store and while he was talking to the food and beverage cashier he fainted. He is not sure if he had any presyncopal symptoms but he notes he feels extremely dizzy after receiving radiation. This has occurred for the previous times he has had radiation of which she has had 5 polyps so far. He notes radiation has been going well no other complications. He is not on any blood thinners. He denies any chest pain or shortness of breath associated with his symptoms. He denies any fevers or chills. He did not eat breakfast prior to going to radiation this morning. He sustained laceration to his anterior head as he fell forward but denies any other neck pain face pain or any other new or worsening symptoms. PD PAST MEDICAL HISTORY - Past Medical History Cardiovascular: Hypertension Respiratory: None Neuro: None Endocrine/Autoimmune: None GI: None : Kidney stones HEENT: Chronic hearing loss Psych: Depression Musculoskeletal: None Derm: None - Past Surgical History Past Surgical History: Yes HEENT: Tonsil/Adenoidectomy - Present Medications Home Medications: Ambulatory Orders Medication Instructions Recorded Confirmed Albuterol Sulf [Ventolin Hfa 1 - 2 puffs INH Q4HR PRN 07/07/23 07/07/23 Inhaler] Ciprofloxacin HCl [Cipro] 500 mg PO ONCE 07/07/23 07/07/23 Sertraline [Zoloft] 50 mg PO DAILY 07/07/23 07/07/23 Tamsulosin [Flomax] 0.4 mg PO DAILY 07/07/23 07/07/23 amLODIPine [Norvasc] 5 mg PO DAILY 07/07/23 07/07/23 traZODone [Desyrel] 50 mg PO HS 07/07/23 07/07/23 - Allergies Allergies/Adverse Reactions: Allergies Allergy/AdvReac Type Severity Reaction Status Date / Time erythromycin base Allergy Cramps Verified 01/09/24 12:06 - Social History Does the pt smoke?: No Smoking Status: Never smoker Does the pt drink ETOH?: Yes - Immunizations Immunizations are current?: Yes PD ED PE NORMAL - Vitals Vital signs reviewed: Yes - General General: Alert and oriented X 3 - HEENT HEENT: Other (laceration approximately 2 cm in size to forehead, no palpable hematoma. No step-off. No hemotympanum) - Neck Neck: Supple, no meningeal sign, Other (Reproducible c-spine tenderness on examination.) - Cardiac Cardiac: RRR, No murmur, No rub, Strong equal pulses - Respiratory Respiratory: No respiratory distress, Clear bilaterally - Abdomen Abdomen: Normal bowel sounds, Soft, Non distended, No organomegaly - Back Back: No CVA TTP - Derm Derm: Normal color, Warm and dry, No rash - Extremities Extremities: No deformity, No tenderness to palpate, Normal ROM s pain (No pain on palpation of upper and lower extremities on examination.), No edema - Neuro Neuro: Alert and oriented X 3, 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 Relevant findings are: RBBB Rate: Rate (enter#), Pj, Tachy, Other Rhythm: NSR [place]: Normal Intervals: Normal IL Compare to prior EKG: Unchanged from prior EKG - Labs Labs: Laboratory Tests 01/09/24 01/09/24 12:54 12:54 WBC 6.7 RBC 4.06 L Hgb 13.1 L Hct 38.8 L MCV 95.6 H MCH 32.3 H MCHC 33.8 RDW 13.0 Plt Count 153 MPV 11.0 Neut # (Auto) 5.0 Lymph # (Auto) 1.2 L Bracken # (Auto) 0.3 Eos # (Auto) 0.1 Baso # (Auto) 0.0 Absolute Nucleated RBC 0.00 Nucleated RBC % 0.0 Sodium 134 L Potassium 3.8 Chloride 99 L Carbon Dioxide 27 Anion Gap 8.0 BUN 8 Creatinine 0.8 Estimated GFR (MDRD) 94 Glucose 173 H Calcium 9.2 Total Bilirubin 0.9 AST 98 H ALT 62 H Alkaline Phosphatase 83 Troponin I High Sens 3.0 Total Protein 7.1 Albumin 4.6 Globulin 2.5 Albumin/Globulin Ratio 1.8 Lipase 123 H - Rads (name of study) CT c-spine Relevant Findings:: EMP independent interpretation of test CT facial bones Relevant Findings:: EMP independent interpretation of test Procedures - Laceration (location) 3 Wound type: Linear Neurovascular status: Sensory intact, Motor intact, Vascular intact Tendon involvement: Tendon intact Anesthesia: Lidocaine 1% with epi Wound preparation: Irrigated copiously NS Skin layer closure: Nylon, Sutures - enter # (3) Other: Patient tolerated well, No complications, Neurovascular intact, Tetanus booster given PD Medical Decision Making - ED course Complexity details: reviewed old records ED course: Patient is a 78-year-old male presenting to the emergency department after recently receiving radiation and coming from [place]. Patient notes he usually feels dizzy this is about his fifth episode of radiation treatment for prostate cancer. He feels dizzy persistently after radiation treatment for a few hours and this is a normal side effect for him he has talked to his oncologist about it in the past. Patient notes he was walking around the grocery store and picking up groceries when he went to talk to a document restorer and he passed out. Patient unsure if he tripped at the time but no tongue biting or incontinence occurred. He denied any chest pain, shortness of breath or nausea occurred prior to this. He does report feeling dizzy prior to this. He describes dizziness symptoms as lightheadedness symptoms. No acute changes he was evaluated by paramedics and drove himself to the emergency department. He denies any persistent symptoms he feels back to baseline. Patient did not eat breakfast prior to coming in. Vitals are stable on arrival. Patient's EKG on arrival shows right bundle branch block and normal sinus rhythm. This is compared to previous EKG on 01/25/2022 with no acute changes. Vitals remained stable here throughout stay here. No focal neurodeficits strength intact in upper and lower extremities. Patient sustained laceration to forehead between both eyebrows and a small abrasion to his right eyelid however no signs of trauma to orbital bones as no step-off or tenderness on exam. Extraocular muscles are intact and full sensation intact to upper and lower extremities. Basic labs were obtained given possible syncopal episode showing no significant signs of leukocytosis. Troponin is negative lipase slightly elevated and slight elevation in AST and ALT this is consistent with previous labs. Lipase is not up to 3 times upper limits of normal no concerns for pancreatitis at this time. CT of head neck and facial bones obtained given recent trauma showing no acute fractures or hematomas appreciated. Patient will be discharged home after laceration repaired. He was given strict return precautions and will return with any chest pain, shortness of breath, nausea, vomiting, vision changes or any other new or worsening symptoms. Patient instructed to return with any redness, swelling warmth or discharge to his stitches. Patient understands and is agreealbe with the plan. Departure - Departure Disposition: 01 Home, Self Care Clinical Impression: Concussion, Forehead laceration Condition: Good Instructions: ED Laceration All, ED Laceration Facial Skin Glue Comments: You were seen here in the emergency department after a fall at home your workup here showed no acute findings I have placed 3 sutures to your anterior forehead these can be removed in 5 to 7 days. Please follow-up with your PCP in the outpatient setting to have them removed and for reevaluation for wound care.Return with any redness swelling warmth fevers discharge. If you develop any chest pain shortness of breath headaches dizziness lightheadedness nausea vomiting return to the emergency department. Forms: PCP List Discharge Date/Time: 01/09/24 16:39
[2024-01-09] MEDS: LIDOCAINE 1%-EPI 1:100000 20 ML MDV SUBQ STA (13:28)
--- NOTE | 2024-01-09 14:26 | CT Report ---
PROCEDURE: Head WO INDICATIONS: fall and head injury TECHNIQUE: Noncontrast 4.5 mm thick angled axial sections acquired from the foramen magnum to the vertex. For r adiation dose reduction, the following was used: automated exposure control, adjustment of mA and/or kV according to patient size. COMPARISON: None. FINDINGS: Image quality: Excellent. CSF spaces: Basal cisterns are patent. No extra-axial fluid collections. Ventricles are normal in size and shape. Brain: No midline shift. No intracranial masses or hemorrhage. Dahl-white matter interface is norm al. Intracranial carotid calcifications. Age-related volume loss and small vessel ischemic change. Skull and face: Calvarium and visualized facial bones are intact, without suspicious lesions. Sinuses: Patchy anterior ethmoid opacification and posterior right ethmoid opacification. Mucosal thi ckening and mucous retention cyst, right maxillary sinus. IMPRESSION: No acute intracranial pathology. Chronic sinus disease Reviewed by: Quinton Boone MD on 01/09/2024 2:25 PM PDT Approved by: Quinton Boone MD on 01/09/2024 2:25 PM PDT Station ID: [id number]
--- NOTE | 2024-01-09 14:30 | CT Report ---
PROCEDURE: Maxillofacial WO INDICATIONS: fall head pain TECHNIQUE: Noncontrast 1.5 mm thick axial images acquired from the mandible through the frontal sinuses, with co devang and sagittal reformatting. For radiation dose reduction, the following was used: automated ex posure control, adjustment of mA and/or kV according to patient size. COMPARISON: None. FINDINGS: Image quality: Excellent. Bones and teeth: Orbital mata are intact. Sinus mata show no fracture or deformity. Nasal bones and septum are intact. Visualized portions of the mandible demonstrate no fractures or subluxation. Zygomatic arches are intact. Pterygoid plates are intact. Visualized portions of the skull base an d auditory canals are intact. Sinuses: Extensive chronic sinus disease. Findings include bilateral frontal sinus mucosal thickening and mild inferior dependent tissue, patchy bilateral anterior ethmoid and posterior right ethmoid op acification, a right maxillary sinus mucus retention cyst, and right maxillary sinus mucosal thickeni ng. Mastoid air cells are aerated. Soft tissues: Left forehead skin laceration and superficial hematoma. No enlarged lymph nodes. No so ft tissue lacerations or debris. Vascular: Visualized vascular structures appear normal in the absence of contrast. Bony vascular fo ramina and canals are intact. IMPRESSION: 1. No acute facial bone fracture or mandibular fracture. 2. Left forehead skin laceration superficial hematoma. 3. Chronic sinus disease. Reviewed by: Quinton Boone MD on 01/09/2024 2:28 PM PDT Approved by: Quinton Boone MD on 01/09/2024 2:28 PM PDT Station ID: [id number]
--- NOTE | 2024-01-09 14:31 | CT Report ---
PROCEDURE: Cervical Spine WO INDICATIONS: fall neck pain TECHNIQUE: Noncontrast 3 mm thick sections acquired from the skull base to the T4 level. Sagittal and coronal r eformats were then constructed. For radiation dose reduction, the following was used: automated exp osure control, adjustment of mA and/or kV according to patient size. COMPARISON: None. FINDINGS: Image quality: Excellent. Bones: No fractures or dislocations. Visualized superior ribs are intact. Cervical spondylosis. Mu ltilevel bony foraminal narrowing. Multilevel facet arthropathy. Soft tissues: Prevertebral soft tissues are normal in thickness. No paravertebral hematomas. No ap ical pneumothoraces. IMPRESSION: 1. No acute cervical fracture or dislocation. 2. Cervical spondylitic change Reviewed by: Quinton Boone MD on 01/09/2024 2:30 PM PDT Approved by: Quinton Boone MD on 01/09/2024 2:30 PM PDT Station ID: [id number]
[2024-01-09 16:11] VITALS: BP 146/77; O2SAT 98
[2024-01-09] MEDS: TETANUS/DIPHTHERIA/PERTUSSIS 0.5 ML SYRINGE IM ONE (16:28)
== END 2024-01-09 16:39 | disposition home or self-care (01) ==
LOC: ED 12:02
DX: S06.0X0A Concussion without loss of consciousness, initial encounter (principal); S01.01XA Laceration without foreign body of scalp, initial encounter; W01.0XXA Fall on same level from slipping, tripping and stumbling without subsequent striking against object, initial encounter; Y92.512 Supermarket, store or market as the place of occurrence of the external cause; Z23 Encounter for immunization; I10 Essential (primary) hypertension; C61 Malignant neoplasm of prostate; Z79.60 Long term (current) use of unspecified immunomodulators and immunosuppressants
CPT/HCPCS: 12013; 36415; 80053; 83690; 84484; 85025; 90471; 93005; 99284